=== PATIENT | female | born 2000 | race Caucasian/White ===

== ENCOUNTER 2019-09-10 22:29 | Emergency (ER) | payer MEDICAID ==
[~2019-09-10] VITALS: Ht 152.4 cm; Wt 127.0 kg
[2019-09-10 22:40] VITALS: Ht 152.4 cm; Wt 127.0 kg
[2019-09-11] VITALS: BP 141/97
== END 2019-09-11 | disposition home or self-care (01) ==
LOC: D.ER 22:29
DX: T78.1XXA Other adverse food reactions, not elsewhere classified, initial encounter (principal); X58.XXXA Exposure to other specified factors, initial encounter